=== PATIENT | male | born 1940 | race Caucasian/White ===

== ENCOUNTER 2022-11-10 14:08 | Inpatient (IN) | payer MEDICARE ==
[2022-11-10] MEDS ORDERED: Bisacodyl 5 MG TAB PO PRN (16:51)
[2022-11-10] MEDS ORDERED: Bisacodyl 10 MG SUPP PR PRN (16:51)
[2022-11-10 16:55] VITALS: BMI 31.0
[2022-11-10] MEDS ORDERED: PATIENT'S HOME MEDICATION IV SCH (17:45)
[2022-11-10] MEDS: HYDROcodone/Acetaminophen 5/325 mg Tablet PO PRN (19:54)
[2022-11-10] MEDS: Amitriptyline HCl 25 MG TAB PO SCH (21:36)
[2022-11-10] MEDS: Carvedilol 3.125 MG TAB PO SCH (21:36)
[2022-11-10] MEDS: Sacubitril 24MG/Valsartan 26 MG TAB PO SCH (21:36)
[2022-11-10] MEDS: Morphine ER 15 MG TAB PO SCH (21:36)
[2022-11-11] MEDS: Senokot 8.6 MG TAB PO SCH (08:55)
[2022-11-11] MEDS: DULoxetine 30 MG CAP PO SCH ×2 (08:56)
[2022-11-11] MEDS: Multivit, Therapeutic 1 TAB PO SCH (08:57)
[2022-11-11] MEDS: Cholecalciferol 1,000 UNITS (25 MCG) TAB PO SCH (08:57)
[2022-11-11] MEDS: Sacubitril 24MG/Valsartan 26 MG TAB PO SCH ×2 (08:57→21:24)
[2022-11-11] MEDS: Furosemide 40 MG TAB PO SCH (08:58)
[2022-11-11] MEDS: Clopidogrel Bisulfate 75 MG TAB PO SCH (08:58)
[2022-11-11] MEDS: Carvedilol 3.125 MG TAB PO SCH ×2 (08:58→21:26)
[2022-11-11] MEDS: Morphine ER 15 MG TAB PO SCH ×2 (09:00→21:24)
[2022-11-11] MEDS: Amitriptyline HCl 25 MG TAB PO SCH (21:26)
[2022-11-12] MEDS: Morphine ER 15 MG TAB PO SCH ×2 (08:43→21:12)
[2022-11-12] MEDS: Senokot 8.6 MG TAB PO SCH (08:48)
[2022-11-12] MEDS: Multivit, Therapeutic 1 TAB PO SCH (08:49)
[2022-11-12] MEDS: Cholecalciferol 1,000 UNITS (25 MCG) TAB PO SCH (08:49)
[2022-11-12] MEDS: DULoxetine 30 MG CAP PO SCH ×2 (08:49)
[2022-11-12] MEDS: Sacubitril 24MG/Valsartan 26 MG TAB PO SCH ×2 (08:49→21:12)
[2022-11-12] MEDS: Carvedilol 3.125 MG TAB PO SCH ×2 (08:50→21:12)
[2022-11-12] MEDS: Clopidogrel Bisulfate 75 MG TAB PO SCH (08:50)
[2022-11-12] MEDS: Furosemide 40 MG TAB PO SCH (08:50)
[2022-11-12] MEDS: Acetaminophen 325 MG TAB PO PRN (14:59)
[2022-11-12] MEDS: HYDROcodone/Acetaminophen 5/325 mg Tablet PO PRN (19:36)
[2022-11-12] MEDS: Amitriptyline HCl 25 MG TAB PO SCH (21:11)
[2022-11-13] MEDS: Morphine ER 15 MG TAB PO SCH ×2 (09:33→21:43)
[2022-11-13] MEDS: Cholecalciferol 1,000 UNITS (25 MCG) TAB PO SCH (10:13)
[2022-11-13] MEDS: DULoxetine 30 MG CAP PO SCH ×2 (10:14→10:15)
[2022-11-13] MEDS: Furosemide 40 MG TAB PO SCH (10:14)
[2022-11-13] MEDS: Carvedilol 3.125 MG TAB PO SCH ×2 (10:14→21:43)
[2022-11-13] MEDS: Clopidogrel Bisulfate 75 MG TAB PO SCH (10:15)
[2022-11-13] MEDS: Senokot 8.6 MG TAB PO SCH (10:15)
[2022-11-13] MEDS: Sacubitril 24MG/Valsartan 26 MG TAB PO SCH ×2 (10:15→21:43)
[2022-11-13] MEDS: Multivit, Therapeutic 1 TAB PO SCH (10:16)
[2022-11-13] MEDS: cefTRIAXone\\ROCEPHIN 2 GM in Sodium Chloride 0.9% 100 ML IVPB SCH (12:11)
[2022-11-13] MEDS: HYDROcodone/Acetaminophen 10/325 mg Tablet PO PRN ×2 (15:23→23:08)
[2022-11-13] MEDS: Amitriptyline HCl 25 MG TAB PO SCH (21:43)
[2022-11-14] MEDS: Morphine ER 15 MG TAB PO SCH ×2 (09:38→20:51)
[2022-11-14] MEDS: Sacubitril 24MG/Valsartan 26 MG TAB PO SCH ×2 (09:40→20:50)
[2022-11-14] MEDS: Senokot 8.6 MG TAB PO SCH (09:40)
[2022-11-14] MEDS: Multivit, Therapeutic 1 TAB PO SCH (09:40)
[2022-11-14] MEDS: Carvedilol 3.125 MG TAB PO SCH ×2 (09:40→20:50)
[2022-11-14] MEDS: DULoxetine 30 MG CAP PO SCH ×2 (09:41)
[2022-11-14] MEDS: Clopidogrel Bisulfate 75 MG TAB PO SCH (09:41)
[2022-11-14] MEDS: Cholecalciferol 1,000 UNITS (25 MCG) TAB PO SCH (09:42)
[2022-11-14] MEDS: Furosemide 40 MG TAB PO SCH (09:42)
[2022-11-14] MEDS: cefTRIAXone\\ROCEPHIN 2 GM in Sodium Chloride 0.9% 100 ML IVPB SCH (09:42)
[2022-11-14] MEDS: HYDROcodone/Acetaminophen 10/325 mg Tablet PO PRN (14:20)
[2022-11-14] MEDS: Amitriptyline HCl 25 MG TAB PO SCH (20:51)
[2022-11-15] MEDS: HYDROcodone/Acetaminophen 10/325 mg Tablet PO PRN (04:41)
[2022-11-15] MEDS: Morphine ER 15 MG TAB PO SCH ×2 (08:47→20:37)
[2022-11-15] MEDS: DULoxetine 30 MG CAP PO SCH ×2 (08:49)
[2022-11-15] MEDS: Senokot 8.6 MG TAB PO SCH (08:49)
[2022-11-15] MEDS: Multivit, Therapeutic 1 TAB PO SCH (08:50)
[2022-11-15] MEDS: Cholecalciferol 1,000 UNITS (25 MCG) TAB PO SCH (08:50)
[2022-11-15] MEDS: Sacubitril 24MG/Valsartan 26 MG TAB PO SCH ×2 (08:50→20:37)
[2022-11-15] MEDS: Clopidogrel Bisulfate 75 MG TAB PO SCH (08:51)
[2022-11-15] MEDS: Carvedilol 3.125 MG TAB PO SCH ×2 (08:51→20:39)
[2022-11-15] MEDS: Furosemide 40 MG TAB PO SCH (08:52)
[2022-11-15] MEDS ORDERED: PATIENT'S HOME MEDICATION SC SCH (09:00)
[2022-11-15] MEDS ORDERED: Ondansetron PF 4 MG/2 ML Vial IVP SCH (09:00)
[2022-11-15] MEDS: Acetaminophen 325 MG TAB PO PRN (10:53)
[2022-11-15] MEDS: cefTRIAXone\\ROCEPHIN 2 GM in Sodium Chloride 0.9% 100 ML IVPB SCH (10:54)
[2022-11-15] MEDS ORDERED: PATIENT'S HOME MEDICATION IVPB SCH (17:30)
[2022-11-15] MEDS: Amitriptyline HCl 25 MG TAB PO SCH (20:37)
[2022-11-16] MEDS: DULoxetine 30 MG CAP PO SCH ×2 (09:27)
[2022-11-16] MEDS: Sacubitril 24MG/Valsartan 26 MG TAB PO SCH ×2 (09:28→20:35)
[2022-11-16] MEDS: Multivit, Therapeutic 1 TAB PO SCH (09:28)
[2022-11-16] MEDS: Cholecalciferol 1,000 UNITS (25 MCG) TAB PO SCH (09:28)
[2022-11-16] MEDS: Clopidogrel Bisulfate 75 MG TAB PO SCH (09:29)
[2022-11-16] MEDS: Furosemide 40 MG TAB PO SCH (09:29)
[2022-11-16] MEDS: Carvedilol 3.125 MG TAB PO SCH ×2 (09:29→20:35)
[2022-11-16] MEDS: Senokot 8.6 MG TAB PO SCH (09:47)
[2022-11-16] MEDS: Morphine ER 15 MG TAB PO SCH ×2 (10:44→20:33)
[2022-11-16] MEDS: cefTRIAXone\\ROCEPHIN 2 GM in Sodium Chloride 0.9% 100 ML IVPB SCH (11:37)
[2022-11-16] MEDS: Acetaminophen 325 MG TAB PO PRN (17:59)
[2022-11-16] MEDS: Amitriptyline HCl 25 MG TAB PO SCH (20:34)
[2022-11-17 06:45] VITALS: TEMP 98.2
[2022-11-17] MEDS: Clopidogrel Bisulfate 75 MG TAB PO SCH (08:10)
[2022-11-17] MEDS: Morphine ER 15 MG TAB PO SCH (08:10)
[2022-11-17] MEDS: DULoxetine 30 MG CAP PO SCH ×2 (08:12)
[2022-11-17] MEDS: Cholecalciferol 1,000 UNITS (25 MCG) TAB PO SCH (08:12)
[2022-11-17] MEDS: Sacubitril 24MG/Valsartan 26 MG TAB PO SCH (08:13)
[2022-11-17] MEDS: Multivit, Therapeutic 1 TAB PO SCH (08:13)
[2022-11-17] MEDS: Senokot 8.6 MG TAB PO SCH (08:13)
[2022-11-17] MEDS: Furosemide 40 MG TAB PO SCH (08:13)
[2022-11-17] MEDS: Carvedilol 3.125 MG TAB PO SCH (08:13)
[2022-11-17] MEDS ORDERED: cefTRIAXone\\ROCEPHIN 2 GM in Sodium Chloride 0.9% 100 ML IVPB SCH (10:00)
[2022-11-17] MEDS: HYDROcodone/Acetaminophen 10/325 mg Tablet PO PRN (11:50)
[2022-11-17 16:45] VITALS: BP 148/71
== END 2022-11-17 13:20 | disposition home or self-care (01) | DRG 948 ==
LOC: BURMED 15:20
PROVIDERS: ADMIT Family Medicine; ATTEND Family Medicine
DX: R53.1 Weakness (principal); C90.00 Multiple myeloma not having achieved remission; I50.22 Chronic systolic (congestive) heart failure; R53.81 Other malaise; M25.552 Pain in left hip; G89.29 Other chronic pain; I11.0 Hypertensive heart disease with heart failure; E78.5 Hyperlipidemia, unspecified; Z90.49 Acquired absence of other specified parts of digestive tract; Z95.0 Presence of cardiac pacemaker
CPT/HCPCS: 36415; 87040; J0696; J3490